=== PATIENT | female | born 1965 | race Caucasian/White ===

== ENCOUNTER → 2018-01-03 | Outpatient (CLI) | payer BC | LOC: LAB.O 09:40 | PROVIDERS: ATTEND Family Medicine | DX: R19.7 Diarrhea, unspecified (principal) ==

== ENCOUNTER → 2018-12-23 | Outpatient (CLI) | payer BC | LOC: LAB.O 10:19 | PROVIDERS: ATTEND Obstetrics & Gynecology | DX: Z00.00 Encounter for general adult medical examination without abnormal findings (principal); Z83.49 Family history of other endocrine, nutritional and metabolic diseases ==